=== PATIENT | female | born 1980 | race Caucasian/White ===

== ENCOUNTER 2020-08-24 10:34 | Emergency (ER) | payer SELFPAY ==
[~2020-08-24] VITALS: Ht 165.1 cm; Wt 59.0 kg
--- NOTE | 2020-08-24 11:03 | NUR ---
AAOX3, CAME TO ER C/O PELVIC PAIN AND WHITISH PERINEAL DISCHARGE X 1 MONTH. RR IS EVEN AND UNLABORED WITH NAD NOTED. SKIN IS WARM AND DRY. URINE OBTAINED SENT TO THE LAB. WILL CONTINUOUSLY MONITOR. AWAITING MD FOR EVAL.
[2020-08-24] MEDS ORDERED: ONDANSETRON HCL/PF 4 MG/2 ML VIAL IVP ONE (11:30)
[2020-08-24] MEDS ORDERED: KETOROLAC TROMETHAMINE INJ 30 MG/ML VIAL IV ONE (11:30)
[2020-08-24] MEDS ORDERED: KETOROLAC TROMETHAMINE 15 MG/ML VIAL ONE (11:39)
[2020-08-24] MEDS ORDERED: ONDANSETRON HCL/PF 4 MG/2 ML VIAL ONE (11:40)
[2020-08-24 11:54] LABS: BASOPHILS % (AUTO) 0.5 % (0.0-2.0); HEMATOCRIT 41 % (33-45); HEMOGLOBIN 13.2 g/dL (11.5-14.8); LYMPHOCYTES # (AUTO) 1.2 /CMM (0.8-4.8); LYMPHOCYTES % (AUTO) 20.1 % (20.0-44.0); MEAN CORPUSCULAR HGB CONC 33 g/dl (31.0-36.0); MEAN CORPUSCULAR VOLUME 90 fL (82-100); MONOCYTES # (AUTO) 0.3 /CMM (0.1-1.30); MONOCYTES % (AUTO) 5.1 % (2.0-12.0); NEUTROPHILS # (AUTO) 4.5 /CMM (1.8-8.9); NEUTROPHILS % (AUTO) 73.3 % (43.0-81.0); PLATELET COUNT (AUTO) 233 /CMM (150-450); RED BLOOD CELL COUNT(AUTO) 4.49 MIL/uL (4.0-5.2); WHITE BLOOD COUNT (AUTO) 6.2 K/uL (4.3-11.0)
[2020-08-24 11:57] LABS: BILIRUBIN,URINE SMALL (NEGATIVE); COLOR,URINE YELLOW (YELLOW); LEUKOCYTE ESTERASE ,URINE NEGATIVE (NEGATIVE); NITRITE, URINE NEGATIVE (NEGATIVE); PH,URINE 6.5 (5.0-8.0); PROTEIN,URINE NEGATIVE (NEGATIVE); UGLUCOSE NEGATIVE (NEGATIVE); UROBILINOGEN,URINE 0.2 EU/dL (0.2)
[2020-08-24 12:17] LABS: CREATININE 0.8 mg/dL (0.6-1.3); POTASSIUM 3.6 mmol/L (3.5-5.1)
[2020-08-24 12:21] LABS: ALBUMIN 4.1 g/dL (3.4-5.0); BILIRUBIN,DIRECT 0.2 mg/dL (0.0-0.2); BILIRUBIN,TOTAL 0.7 mg/dL (0.2-1.0); TOTAL PROTEIN, SERUM 7.3 g/dL (6.4-8.2)
[2020-08-24 13:18] LABS: BACTERIA,URINE Rare /HPF (None Seen); RBC,URINE 0-2 /HPF (0-2); SQUAMOUS EPITHELIAL CELL,UR Few /HPF (None Seen); WBC,URINE 0-2 /HPF (0-3)
[2020-08-24] MEDS ORDERED: CEFTRIAXONE 500 MG VIAL ONE (13:27)
[2020-08-24] MEDS ORDERED: AZITHROMYCIN 250 MG TABLET ONE (13:27)
[2020-08-24] MEDS ORDERED: LIDOCAINE /MPF 1% VIAL 5 ML VIAL ONE (13:27)
[2020-08-24] MEDS ORDERED: AZITHROMYCIN 250 MG TABLET PO ONE (13:30)
[2020-08-24] MEDS ORDERED: CEFTRIAXONE 500 MG VIAL IM ONE (13:30)
[2020-08-24 13:44] VITALS: BP 120/81
--- NOTE | 2020-08-24 13:45 | NUR ---
Patient discharged to home in stable condition. Written and verbal after care instructions given. Patient verbalizes understanding of instruction.IV removed. Catheter intact and site benign. Pressure and 4x4 applied to site. No bleeding noted.
== END 2020-08-24 13:45 | disposition home or self-care (01) ==
LOC: ER 10:36
DX: R10.2 Pelvic and perineal pain (principal); H93.11 Tinnitus, right ear; N89.8 Other specified noninflammatory disorders of vagina; F17.200 Nicotine dependence, unspecified, uncomplicated; Z98.890 Other specified postprocedural states
CPT/HCPCS: 36415; 70450; 76856; 80048; 80076; 81001; 84703; 85025; 85730; 87491; 87591; 96372; 96374; 96375; 99285; J0696; J1885; J2405; J3490

== ENCOUNTER 2020-12-28 13:16 | Emergency (ER) | payer MEDICAID, OTHER ==
[~2020-12-28] VITALS: Ht 165.1 cm; Wt 59.4 kg
[2020-12-28 13:40] VITALS: BP 115/77
--- NOTE | 2020-12-28 14:10 | NUR ---
PATIENT WENT TO RESTROOM.
--- NOTE | 2020-12-28 14:26 | NUR ---
PATIENT IS NO LONGER IN BED. ELOPED THE FACILITY. DR. SCHULTZ MADE AWARE.
== END 2020-12-28 14:29 | disposition left against medical advice (07) ==
LOC: ER 13:16
DX: Z53.21 Procedure and treatment not carried out due to patient leaving prior to being seen by health care provider (principal); R51.9 Headache, unspecified